=== PATIENT | female | born 1960 | race Caucasian/White ===

== ENCOUNTER → 2023-09-25 11:59 | Outpatient (REF) | payer BC, SELFPAY | LOC: HWWDC 11:59 | PROVIDERS: ATTENDING PHYSICIAN Obstetrics & Gynecology; FAMILY PHYSICIAN Family Medicine | DX: Z12.31 Encounter for screening mammogram for malignant neoplasm of breast (principal) | CPT/HCPCS: 77063; 77067 ==

== ENCOUNTER → 2024-03-26 13:18 | Outpatient (REF) | payer BC, SELFPAY | LOC: RCS 13:18 | PROVIDERS: ATTENDING PHYSICIAN Internal Medicine Cardiovascular Disease; FAMILY PHYSICIAN Family Medicine | DX: R94.31 Abnormal electrocardiogram [ECG] [EKG] (principal) | CPT/HCPCS: 93017; 93350 ==

== ENCOUNTER → 2024-07-13 13:13 | Outpatient (REF) | payer SELFPAY | LOC: HWRAD 13:13 | PROVIDERS: ATTENDING PHYSICIAN Internal Medicine Cardiovascular Disease; FAMILY PHYSICIAN Family Medicine | DX: E78.2 Mixed hyperlipidemia (principal) | CPT/HCPCS: 75571 ==